=== PATIENT | male | born 1970 | race Caucasian/White ===

== ENCOUNTER 2017-06-04 02:38 | Emergency (ER) | payer SELFPAY ==
[2017-06-04 07:10] VITALS: BP 122/86
== END 2017-06-04 07:10 | disposition home or self-care (01) ==
LOC: ED 02:38
DX: S02.609A Fracture of mandible, unspecified, initial encounter for closed fracture (principal); S02.19XA Other fracture of base of skull, initial encounter for closed fracture; S01.01XA Laceration without foreign body of scalp, initial encounter; I10 Essential (primary) hypertension; Y04.2XXA Assault by strike against or bumped into by another person, initial encounter; Y93.89 Activity, other specified; Y99.8 Other external cause status; Y92.89 Other specified places as the place of occurrence of the external cause
CPT/HCPCS: 90715; J0295; J2001; J2405; J3010; J3490; J7030